=== PATIENT | female | born 1965 | race Asian ===

== ENCOUNTER → 2021-12-14 | Outpatient (CLI) | payer BC | END | disposition home or self-care (01) | LOC: RAD 14:17 | PROVIDERS: ATTEND Internal Medicine | DX: M17.12 Unilateral primary osteoarthritis, left knee (principal); M47.812 Spondylosis without myelopathy or radiculopathy, cervical region; M25.762 Osteophyte, left knee; M47.817 Spondylosis without myelopathy or radiculopathy, lumbosacral region; M43.8X4 Other specified deforming dorsopathies, thoracic region | CPT/HCPCS: 72040; 72110; 73562 ==